=== PATIENT | female | born 1965 | race Caucasian/White ===

== ENCOUNTER 2017-07-26 08:44 | Emergency (ER) | payer OTHER ==
[~2017-07-26] VITALS: Ht 172.7 cm; Wt 165.6 kg
[2017-07-26] MEDS ORDERED: VENTOLIN HFA18 GM INH ×2 (08:56→12:02)
[2017-07-26] MEDS ORDERED: METFORMIN HCL500 MG PO (08:56)
[2017-07-26] MEDS ORDERED: PREDNISONE20 MG PO (12:02)
[2017-07-26] MEDS ORDERED: ZITHROMAX250 MG PO (12:02)
== END 2017-07-26 12:23 | disposition home or self-care (01) ==
LOC: ED 08:44
DX: J45.901 Unspecified asthma with (acute) exacerbation (principal); Z88.0 Allergy status to penicillin
CPT/HCPCS: 71010; 80053; 85025; 94640; 96374; 99284; J2930

== ENCOUNTER 2017-09-09 22:52 | Emergency (ER) | payer OTHER ==
[~2017-09-09] VITALS: Ht 172.7 cm; Wt 158.8 kg
[~2017-09-09 22:52] MED LIST: METFORMIN HCL500 MG PO; PREDNISONE20 MG PO; VENTOLIN HFA18 GM INH; ZITHROMAX250 MG PO
[2017-09-09] MEDS ORDERED: FLUOXETINE HCL20 M1 PO (23:03)
[2017-09-09] MEDS ORDERED: PREDNISONE20 MG PO (23:29)
[2017-09-09] MEDS ORDERED: TRUNEB NEBULIZ1 EACH NEB (23:32)
== END 2017-09-09 23:40 | disposition home or self-care (01) ==
LOC: ED 22:52
DX: J45.901 Unspecified asthma with (acute) exacerbation (principal); E11.9 Type 2 diabetes mellitus without complications; Z79.84 Long term (current) use of oral hypoglycemic drugs; Z79.52 Long term (current) use of systemic steroids; Z88.0 Allergy status to penicillin; F17.200 Nicotine dependence, unspecified, uncomplicated; Z98.890 Other specified postprocedural states
CPT/HCPCS: 80053; 83735; 84484; 85025; 94640; 99283; J7512

== ENCOUNTER 2017-11-23 11:15 | Emergency (ER) | payer OTHER ==
[~2017-11-23] VITALS: Ht 172.7 cm; Wt 168.0 kg
--- OUTSIDE RECORDS SUMMARY | ~2017-11-23 | XMS | Clinical Summary ---
Demographics + + + | Address | [address] [facility] | | | [place] [address] | + + + | Home Phone | | + + + | Preferred Language | Unknown | + + + | Marital Status | Single | + + + | Hinduism Affiliation | Unknown | + + + | Race | White | + + + | Ethnic Group | or | + + + Author + + + | Author | [facility] | + + + | Organization | [facility] | + + + | Address | Unknown | + + + | Phone | Unavailable | + + + Support + + +---------+ + | Name | Relationship | Address | Phone | + + +---------+ + | VIKY WRIGHT | ECON | Unknown | | + + +---------+ + Care Team Providers + +------+ + | Care Market Developer Name | Role | Phone | + +------+ + | Eliot Lozada PROPERTY FIELD ADJUSTER | PP | Unavailable | + +------+ + Source Comments CLARITA is fully live on both [facility] Ambulatory and [facility] InPatient.[facility] Allergies + + + + + + | Active Allergy | Reactions | Severity | Noted | Comments | | | | | Date | | + + + + + + | Penicillin | Anaphylaxis | High | 12/26/19 | | | | | | 16 | | + + + + + + Current Medications + + +-------+---------+------+------+-------+ | Prescription | Sig. | Disp. | Refills | Star | End | Statu | | | | | | t | Date | s | | | | | | Date | | | + + +-------+---------+------+------+-------+ | glipiZIDE 5 mg | Take 5 mg by mouth | | | | | Activ | | oral tablet | once daily. | | | | | e | + + +-------+---------+------+------+-------+ | | Inhale 1 puff two | | | | | Activ | | fluticasone-salmeter | times daily. | | | | | e | | ol 500-50 mcg/dose | | | | | | | | inhalation blister | | | | | | | | with device | | | | | | | + + +-------+---------+------+------+-------+ | loratadine 10 mg | Take 10 mg by mouth | | | | | Activ | | oral tablet | once daily. | | | | | e | + + +-------+---------+------+------+-------+ | ALBUTEROL INHL | Inhale. | | | | | Activ | | | | | | | | e | + + +-------+---------+------+------+-------+ | | Inhale. | | | | | Activ | | IPRATROPIUM/ALBUTERO | | | | | | e | | L SULFATE | | | | | | | | (IPRATROPIUM-ALBUTER | | | | | | | | OL INHL) | | | | | | | + + +-------+---------+------+------+-------+ | gabapentin 300 mg | Take 300 mg by mouth | | | | | Activ | | oral capsule | three times daily. | | | | | e | + + +-------+---------+------+------+-------+ | metFORMIN 1,000 mg | Take 1,000 mg by | | | | | Activ | | oral tablet | mouth two times | | | | | e | | | daily. | | | | | | + + +-------+---------+------+------+-------+ | montelukast 10 mg | Take 10 mg by mouth | | | | | Activ | | oral tablet | once daily in the | | | | | e | | | evening. | | | | | | + + +-------+---------+------+------+-------+ | MEDICATION | Indications: | | | | | Activ | | HELPIndications: | FreeStyle Meter and | | | | | e | | FreeStyle Meter and | FreeStyle test | | | | | | | FreeStyle test | strips | | | | | | | strips | | | | | | | + + +-------+---------+------+------+-------+ Active Problems Not on file Social History + +-------+ +--------+------+ | Tobacco Use | Types | Packs/Day | Years | Date | | | | | Used | | + +-------+ +--------+------+ | Former Smoker | | | | | + +-------+ +--------+------+ + + | Comments: age quit 50 | + + + + +---------+ + | Alcohol Use | Drinks/We | oz/Week | Comments | | | ek | | | + + +---------+ + | Yes | 0 | 0.0 | | | | Standard | | | | | drinks or | | | | | | | | | | equivalen | | | | | t | | | + + +---------+ + + + + | Sex Assigned at | Date Recorded | | | | + + + | Not on file | | + + + Last Filed Vital Signs + + + + | Vital Sign | Reading | Time Taken | + + + + | Blood Pressure | 140/80 | 12/26/2015 1:49 PM PDT | + + + + | Pulse | 91 | 12/26/2015 1:49 PM PDT | + + + + | Temperature | - | - | + + + + | Respiratory Rate | - | - | + + + + | Oxygen Saturation | 94% | 12/26/2015 1:49 PM PDT | + + + + | Inhaled Oxygen | - | - | | Concentration | | | + + + + | Weight | 162.4 kg (358 lb) | 12/26/2015 1:49 PM PDT | + + + + | Height | 174 cm (5' 8.5") | 12/26/2015 1:49 PM PDT | + + + + | Body Mass Index | 53.64 | 12/26/2015 1:49 PM PDT | + + + + Plan of Treatment + + + + + | Health Maintenance | Due Date | Last Done | Comments | + + + + + | MAMMOGRAM | | | | | | 4 | | | + + + + + | INFLUENZA VACCINE | | | | | (FLU SHOT) | 7 | | | + + + + + Results Not on filefrom Last 3 Months
--- OUTSIDE RECORDS SUMMARY | ~2017-11-23 | XMS | Clinical Summary ---
Demographics + + + | Address | [address] [facility] [address] | | | [place] [address] | + + + | Home Phone | | + + + | Preferred Language | Unknown | + + + | Marital Status | Single | + + + | Episcopalian Affiliation | Unknown | + + + [...] Team Providers + +------+ + | Care Top And Seat Cover Fitter Name | Role | Phone | + +------+ + | Eliot Lozada CHIEF GREEN OFFICER | PP | Unavailable | + +------+ + Source Comments CLARITA is fully live on both [facility] Ambulatory and [facility] InPatient.[facility] Allergies + + + + + [...]
[~2017-11-23 11:15] MED LIST changes: +FLUOXETINE HCL20 M1 PO; +TRUNEB NEBULIZ1 EACH NEB
== END 2017-11-23 13:09 | disposition short-term general hospital (02) ==
LOC: ED 11:15
DX: T17.900A Unspecified foreign body in respiratory tract, part unspecified causing asphyxiation, initial encounter (principal); J45.909 Unspecified asthma, uncomplicated; F31.9 Bipolar disorder, unspecified; E11.9 Type 2 diabetes mellitus without complications; F17.200 Nicotine dependence, unspecified, uncomplicated; Z88.0 Allergy status to penicillin; Z79.51 Long term (current) use of inhaled steroids; Z79.84 Long term (current) use of oral hypoglycemic drugs; Z79.899 Other long term (current) drug therapy
CPT/HCPCS: 71045; 99285

== ENCOUNTER 2018-04-23 03:16 | Emergency (ER) | payer OTHER ==
[~2018-04-23] VITALS: Ht 172.7 cm; Wt 167.8 kg
[2018-04-23] MEDS ORDERED: PREDNISONE20 MG PO (03:47)
[2018-04-23] MEDS ORDERED: PROVENTIL HFA6.7 GM INH (03:47)
== END 2018-04-23 04:30 | disposition home or self-care (01) ==
LOC: ED 03:16
DX: J45.901 Unspecified asthma with (acute) exacerbation (principal); F43.10 Post-traumatic stress disorder, unspecified; F31.9 Bipolar disorder, unspecified; Z87.891 Personal history of nicotine dependence; Z88.0 Allergy status to penicillin; Z79.899 Other long term (current) drug therapy; Z79.84 Long term (current) use of oral hypoglycemic drugs
CPT/HCPCS: 94640; 99285; J7512

== ENCOUNTER 2020-09-09 14:14 | Emergency (ER) | payer OTHER ==
[~2020-09-09] VITALS: Ht 172.7 cm; Wt 157.4 kg
[~2020-09-09 14:14] MED LIST changes: +PROVENTIL HFA6.7 GM INH
--- OUTSIDE RECORDS SUMMARY | 2020-09-09 14:16 | XMS ---
PreManage Notification: RADHA YUSUF Security Contracts Law Professor Events No recent Security Events currently on file CRITERIA MET - Group Notification - 6 ED Visits in 6 Months - History of Sepsis Dx - PDMP - [facility] - 2 Visits in 30 Days CARE PROVIDERS Name Unknown [facility] Current PHONE: [phone] Valentine Mullen Chamfering Machine Operator/Renal Nurse 05/31/2020-Current PHONE: [phone] [facility] [place] Physician Sound Assistant Current PHONE: [phone] Mark has no Care Guidelines for this patient. E.D. VISIT COUNT (12 MO.) [address] Sherrie [place] [address] TOTAL 9 NOTE: Visits indicate total known visits. ED/UCC VISIT TRACKING (12 MO.) 09/09/2020 14:15 [facility] TYPE: Emergency COMPLAINT: - [facility] DIAGNOSES: - Intrahepatic bile duct carcinoma - Failure to Thrive 08/06/2020 17:50 [facility] [place] TYPE: Emergency DIAGNOSES: - Fatigue - Elevated white blood cell count, unspecified - body pain - Other specified diseases of liver - Unspecified abdominal pain - Sepsis, unspecified organism - Hypo-osmolality and hyponatremia - Iron deficiency anemia, unspecified 08/04/2020 12:50 [facility] [place] TYPE: Emergency DIAGNOSES: - Malignant ascites - Abdominal Distension 07/03/2020 12:03 [facility] [place] [place] TYPE: Emergency DIAGNOSES: - Neutropenia, unspecified - Fever presenting with conditions classified elsewhere - Malignant neoplasm of biliary tract, unspecified - Emesis - Shortness of Breath - Sepsis, unspecified organism - Hyperglycemia, unspecified - MCC (current) use of insulin - Type 2 diabetes mellitus without complications - Fever (9 Weeks To 74 Years) - Pneumonia, unspecified organism 06/14/2020 14:36 [facility] [place] TYPE: Emergency DIAGNOSES: - Spontaneous bacterial peritonitis - Peritonitis, unspecified - Unspecified abdominal pain - Abdominal Pain - Malignant (primary) neoplasm, unspecified - abd pain-via ambulance in waiting - Secondary malignant neoplasm of other digestive organs 06/03/2020 12:39 [facility] [place] TYPE: Emergency DIAGNOSES: - Constipation, unspecified - dizziness - Abdominal distension (gaseous) - Abdominal Problem 05/30/2020 09:23 [facility] [place] TYPE: Emergency DIAGNOSES: - Abdominal Pain - abd pain, chills-tent 2 - abd pain, chills - Gastro-esophageal reflux disease with esophagitis - Generalized abdominal pain - Other ascites - Hepatomegaly, not elsewhere classified 10/21/2019 21:47 [facility] [place] TYPE: Emergency DIAGNOSES: - Acute respiratory failure with hypoxia - Moderate persistent asthma with (acute) exacerbation - Type 2 diabetes mellitus with hyperglycemia - SOB - Shortness of Breath INPATIENT VISIT TRACKING (12 MO.) 08/06/2020 17:50 [facility] [place] TYPE: Surgical Services DIAGNOSES: - Gastro-esophageal reflux disease without esophagitis - Other specified counseling - Morbid (severe) obesity due to excess calories - Iron deficiency anemia, unspecified - Unspecified abdominal pain - MCC (current) use of insulin - Other nonspecific abnormal finding of lung field - Elevated white blood cell count, unspecified - Sepsis, unspecified organism - Malignant neoplasm of gallbladder - Malignant (primary) neoplasm, unspecified - Personal history of other venous thrombosis and embolism - Spontaneous bacterial peritonitis - Type 2 diabetes mellitus without complications - Encounter for palliative care - Hypomagnesemia - Other specified anxiety disorders - Secondary malignant neoplasm of retroperitoneum and peritoneum - Pain, unspecified - Unspecified asthma, uncomplicated - Hypo-osmolality and hyponatremia - Unspecified severe protein-calorie malnutrition - Other specified diseases of liver - Malignant neoplasm of biliary tract, unspecified 07/03/2020 12:03 [facility] [place] TYPE: Medical Surgical DIAGNOSES: - Malignant neoplasm of biliary tract, unspecified - Acute respiratory failure with hypoxia - Sepsis, unspecified organism - Type 2 diabetes mellitus without complications - Malignant (primary) neoplasm, unspecified - Unspecified severe protein-calorie malnutrition - Neutropenia, unspecified - Hyperglycemia, unspecified - Gastro-esophageal reflux disease without esophagitis - Pneumonia, unspecified organism - MCC (current) use of insulin - Morbid (severe) obesity due to excess calories - Secondary malignant neoplasm of retroperitoneum and peritoneum - Fever presenting with conditions classified elsewhere 06/14/2020 14:36 [facility] [place] TYPE: Medical Surgical DIAGNOSES: - MCC (current) use of insulin - Spontaneous bacterial peritonitis - Secondary malignant neoplasm of retroperitoneum and peritoneum - Secondary malignant neoplasm of other digestive organs - Malignant (primary) neoplasm, unspecified - Malignant neoplasm of biliary tract, unspecified - Unspecified severe protein-calorie malnutrition - Type 2 diabetes mellitus without complications - Peritonitis, unspecified 10/21/2019 21:47 [facility] [place] TYPE: Medical Surgical DIAGNOSES: - Type 2 diabetes mellitus with hyperglycemia - Morbid (severe) obesity due to excess calories - Moderate persistent asthma with (acute) exacerbation - Acute respiratory failure with hypoxia - Severe persistent asthma with (acute) exacerbation [email or web address]
[2020-09-09] MEDS ORDERED: NOVOLIN 70100 UNIT/2 SUB-Q (14:46)
[2020-09-09] MEDS ORDERED: FENTANYL1 EAC5 TD (14:49)
[2020-09-09] MEDS ORDERED: HYDROXYZINE HCL10 MG PO (14:53)
[2020-09-09] MEDS ORDERED: SPIRIVA18 MCG INH (15:22)
[2020-09-09] MEDS ORDERED: ASPERCREME1 EACH TD (16:04)
[2020-09-09] MEDS ORDERED: MIRALAX119 GM PO (16:05)
[2020-09-09] MEDS ORDERED: PROTONIX40 M1 PO (16:07)
[2020-09-09] MEDS ORDERED: MONTELUKAST SOD10 MG PO (16:10)
[2020-09-09] MEDS ORDERED: ALDACTONE50 MG PO (16:13)
[2020-09-09] MEDS ORDERED: CIPRO500 MG PO (16:15)
[2020-09-09] MEDS ORDERED: ELIQUIS5 MG PO (16:17)
[2020-09-09] MEDS ORDERED: FUROSEMIDE40 MG PO (16:18)
== END 2020-09-09 16:10 | disposition home or self-care (01) ==
LOC: ED 14:14
DX: C24.0 Malignant neoplasm of extrahepatic bile duct (principal); E11.9 Type 2 diabetes mellitus without complications; J45.909 Unspecified asthma, uncomplicated; G47.30 Sleep apnea, unspecified; Z87.891 Personal history of nicotine dependence; Z88.0 Allergy status to penicillin; Z79.899 Other long term (current) drug therapy; Z79.4 Long term (current) use of insulin
CPT/HCPCS: 76705; 99284-25